=== PATIENT | male | born 1985 | race Caucasian/White ===

== ENCOUNTER 2023-03-13 03:11 | Emergency (ER) | payer OTHER, SELFPAY ==
[2023-03-13 03:16] VITALS: BP 133/80; PULSE 60; RESP 16; TEMP 36.6; O2SAT 98
--- NOTE | 2023-03-13 03:37 | ED.GENADULT ---
HPI - General Adult General Chief complaint: Headache/Migraine Stated complaint: Head Pain Time Seen by Provider: 03/13/23 03:29 History of Present Illness HPI narrative: headache. one month, has been getting worse. today has been very bad. reports vomiting because the headache is so bad. last time he vomited was around 2030 last night. no reported trauma. pt reports normal vision. the headache pain goes from right eye to back of head. no report of neck pain. 38-year-old man presenting to the emergency department Over the last month or so reports new daily headaches. Does not tend to wake with them but seemed to begin after a few hours increase over the course of the day. He demonstrates a line along the upper right scalp from front to back. Not exactly electrical pain he says. 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 No trauma or head injuries. No visual changes. Has vomited. Has been sleeping well without headache. Was talking to a friend and became concerned about a potential migraine diagnosis or even a tumor. There is no family history of tumors. No discoordination focal weaknesses. Headaches are not constant as described above. He did described the headache surrounding the right eye at 1 point. Does not report concurrent lacrimation and/or rhinorrhea. Can be photophobic. Related Data Home Medications Medication Instructions Recorded Confirmed No Known Home Medications 03/13/23 03/13/23 Allergies Allergy/AdvReac Type Severity Reaction Status Date / Time No Known Drug Allergies Allergy Verified 03/13/23 03:26 Review of Systems Status of ROS: Reports: 6 or more systems reviewed and unremarkable except as noted in History and below PFSH PFS Social History Smoking Status: Never smoker Do you use any of these nicotine containing products: None Non-prescribed substance use: denies use Exam Narrative: Exam Narrative: Pleasant. NAD. Speaking fluidly. Cranial nerves 2-12 are intact. Ear canals are unremarkable. Neck is supple. No occipital tenderness to percussion or otherwise. There is a scar on the right forehead. Moving all extremities without difficulty. Has good strength and intact sensation. Const: Vital Signs, click to edit/add: Vital Signs - 24 hr 03/13/23 03:16 Temperature 97.9 F Pulse Rate [Left P ulse Oximeter] 60 Respiratory Rate 16 Blood Pressure [Ri ght Upper Arm] 133/80 Pulse Oximetry 98 Oxygen Delivery Me thod Room Air Documenting provider has reviewed patient's vital signs: yes Course Vital Signs Vital signs: Initial Vital Signs Temperature 97.9 F 03/13/23 03:16 Temperature Source Temporal Artery Scan 03/13/23 03:16 Pulse Rate 60 03/13/23 03:16 Pulse Rhythm Regular 03/13/23 03:16 Respiratory Rate 16 03/13/23 03:16 Blood Pressure 133/80 03/13/23 03:16 Blood Pressure Mean 97 03/13/23 03:16 Blood Pressure Position Sitting 03/13/23 03:16 Pulse Oximetry 98 03/13/23 03:16 Oxygen Delivery Method Room Air 03/13/23 03:16 Vital Signs Temperature 97.9 F 03/13/23 03:16 Pulse Rate 60 03/13/23 03:16 Respiratory Rate 16 03/13/23 03:16 Blood Pressure 133/80 03/13/23 03:16 Pulse Oximetry 98 03/13/23 03:16 Oxygen Delivery Method Room Air 03/13/23 03:16 Temperature 97.9 F 03/13/23 03:16 Pulse Rate 60 03/13/23 05:23 Respiratory Rate 16 03/13/23 05:23 Blood Pressure 132/72 03/13/23 05:23 Pulse Oximetry 98 03/13/23 05:23 Oxygen Delivery Method Room Air 03/13/23 05:23 Medications Administered Medications: Discontinued Medications Generic Name Dose Route Start Last Admin Trade Name Freq PRN Reason Stop Dose Admin Diphenhydramine HCl 12.5 mg 03/13/23 03:47 03/13/23 04:05 Diphenhydramine 50 Mg/Ml Inj IVP 03/13/23 03:48 12.5 mg ONCE ONE Administration Sodium Chloride 1,000 mls @ 1,000 mls/hr 03/13/23 03:47 03/13/23 04:34 0.9 % Sodium Chloride 1000 Ml IV 03/13/23 04:46 Infused .Q1H ONE Infusion Ketorolac Tromethamine 30 mg 03/13/23 03:47 03/13/23 04:05 Ketorolac 30 Mg/Ml Inj IVP 03/13/23 03:48 30 mg ONCE ONE Administration Medical Decision Making MDM Narrative Medical decision making narrative: He does have understandable concerns regarding this somewhat new onset headache. I appreciate that it does kia and allow for sleep and then occurs over the course of the day; I would say seeming to have somewhat of a tension component. Area of distribution would seem to be occipital neuralgia/headache but pulsatile nature that he describes is almost like a tic douloureux. He would like some treatment for relief of this headache. We discussed potential benefit of imaging but decided to defer at this time. IV was placed. Received ketorolac, diphenhydramine and normal saline. On reassessment is nearly completely free of headache and seems relieved. Discussed [id number] options for temporary headache relief If treatment proves difficult or symptoms seem to be escalating, would recommend imaging and/or consideration of neuro-epileptic treating partially like a tic [place] See patient discharge plan. Discharge Plan Discharge Clinical Impression: Headache Patient Disposition: Home w/ Parent or Adult Condition: Improved Additional Instructions: Be sure to stay well hydrated with water. Try to get in little heart pumping exercise daily. Be sure to be eating healthy food. Get quality and regular sleep. If these headaches are continuing, I would follow-up in primary care to investigate further. In the meantime you can try Excedrin-type pain medication [id number]. There are generic versions. Aseg?rese de mantenerse sarah hidratado con agua. Trate de hacer un poco de ejercicio de bombeo card?aco todos los d?as. Aseg?rese de comer alimentos saludables. Duerme sarah y con regularidad. Si estos lakeisha de jessica contin?an, yannick?a un seguimiento en atenci?n primaria para investigar m?s a fondo. Mientras tanto, puede probar analg?sicos tipo Excedrin de venta brianne. Hay versiones gen?ricas. Prescriptions: No Action No Known Home Medications Follow Up/Referrals: Provider,Not a Local [Primary Care Provider] - Stand Alone Forms: [employer] Info Instructions
[2023-03-13] MEDS: 0.9 % SODIUM CHLORIDE 1000 ml 1,000 ML IV (04:05)
[2023-03-13] MEDS: diphenhydrAMINE 50 MG/ML inj 12.5 MG IVP (04:05)
[2023-03-13] MEDS: KETOROLAC 30 MG/ML inj IVP (04:05)
[2023-03-13 05:23] VITALS: BP 132/72; PULSE 60; RESP 16; O2SAT 98
== END 2023-03-13 05:23 | disposition home or self-care (01) ==
PROVIDERS: Emergency Provider Family Medicine
DX: R51.9 Headache, unspecified (principal)
CPT/HCPCS: 96374; 96375; 99284; J1200; J1885; J7030